=== PATIENT | female | born 1975 | race Hispanic/Latino ===

== ENCOUNTER 2019-10-14 11:00 | Outpatient (CLI) | payer BC | END 2019-10-14 11:01 | disposition home or self-care (01) | LOC: SLR 11:00 | PROVIDERS: ATTEND Otolaryngology | DX: G47.30 Sleep apnea, unspecified (principal) | CPT/HCPCS: G0399 ==

== ENCOUNTER 2019-10-20 11:00 | Outpatient (CLI) | payer BC | END 2019-10-20 11:01 | disposition home or self-care (01) | LOC: SLR 11:00 | PROVIDERS: ATTEND Otolaryngology | DX: G47.30 Sleep apnea, unspecified (principal) | CPT/HCPCS: 95810 ==

== ENCOUNTER 2019-10-21 10:31 | Outpatient (CLI) | payer BC | END 2019-10-21 10:32 | disposition home or self-care (01) | LOC: SLR 10:31 | PROVIDERS: ATTEND Otolaryngology | DX: G47.30 Sleep apnea, unspecified (principal); G47.419 Narcolepsy without cataplexy | CPT/HCPCS: 95805 ==